=== PATIENT | male | born 1995 | race Caucasian/White ===

== ENCOUNTER 2017-07-24 06:10 | Day surgery (SDC) | payer OTHER ==
--- NOTE | 2017-07-14 10:21 | HP ---
CC: Dr. [facility]; Dr. Saul * PREOPERATIVE HISTORY AND PHYSICAL: DATE OF ADMISSION: The patient is scheduled for same-day surgery admission by Dr. Blank on , 07/24/17 DATE OF PREOPERATIVE HISTORY AND PHYSICAL EXAMINATION: 07/11/17. ATTENDING SURGEON: Dr. George Blank * (dictated by Alexandria Up NP) CHIEF COMPLAINT: Anal fistula. HISTORY OF PRESENT ILLNESS: The patient is a 21-year-old male initially referred to Dr. Blank in January 2017 from [facility] for evaluation of a perianal abscess. It was unclear at that time whether it represented a fistula or draining abscess. He was treated with antibiotics and topical therapy. He had not returned to our office until 05/28/17, complaining of ongoing drainage and external pain. He did not report a lot of pain with bowel movement, but when he was wiping or cleaning the area, it was very tender. He denied any fever or chills. He does not have a history of Crohn's disease or colitis. He was not reporting blood in the stool. He reported adequate sphincter control. Dr. Blank examined him on 05/28/17 and at that time, he had 3 openings on the left buttock about the 8 o'clock position, about 4 cm from the anus. These were pouting granulation and were tender; Dr. Blank at that time was unable to do a proper anoscopic examination. Therefore, Dr. Blank discussed the findings with the patient and his mother, stating that it clearly represents anal fistula disease and was concerned about this being a complex fistula, so an MRI was ordered which confirmed a left perianal fistula, not associated with a complex fistula and no loculated abscess. Dr. Blank has recommended anal exam under anesthesia and possible fistulotomy as a same-day surgery procedure and has described the nature of the surgical procedure, the use of a seton, the relevant risks and benefits, and today I reviewed the expected postoperative care and recovery with the patient and his mother. They have had a chance to ask questions and stated that they understand the information and are satisfied with the answers given to their questions. The patient will sign surgical consent on the day of surgery. PAST MEDICAL HISTORY: Generally healthy. No acute or chronic diseases. PAST SURGICAL HISTORY: Limited to office excision of a benign mass on the right anterior chest in [address] Blank. MEDICATIONS: None currently. ALLERGIES: No known drug allergies. FAMILY HISTORY: No known anesthesia complications, bleeding tendencies, or clotting disorders. SOCIAL HISTORY: He is single; he works in a grocery store. He is a nonsmoker. He denies the use of alcohol or other substances. His mother accompanied him to the visit today. REVIEW OF SYSTEMS: Constitutional: No fevers, chills, excessive fatigue, or weight loss. Endocrine: No diabetes or thyroid disease. Hematologic: No easy bruising or bleeding. Respiratory: No dyspnea on exertion. No chronic cough. Cardiovascular: No anginal chest pain or palpitations. Gastrointestinal : No nausea, vomiting, diarrhea, GI bleeding, or constipation. Genitourinary: No dysuria. Musculoskeletal: No pain. Neurologic: No headache or blurred vision or areas of focal weakness. General: No history of deep vein thrombosis or pulmonary embolism; no previous general anesthesia and has tolerated local anesthesia. No bleeding tendencies and has never received a blood transfusion. PHYSICAL EXAMINATION GENERAL SURVEY: The patient is a 21-year-old male, well developed, well nourished, in no acute distress. VITAL SIGNS: Height 70 inches, weight 141 pounds, body mass index 20. Blood pressure 118/62, pulse 84 and regular, respiratory rate 16, temperature 97.5 tympanic. HEENT: Benign. NECK: Supple. No cervical lymphadenopathy. LUNGS: Breath sounds bilaterally clear and equal. HEART: Regular rate and rhythm. No murmurs or rubs appreciated. BACK: No CVA tenderness. ABDOMEN: Active bowel sounds, soft, nondistended, nontender throughout. No obvious masses, organomegaly, or evidence of ventral hernias. RECTAL: Exam of the open wounds on the left buttock as examined by myself and Dr. Blank today revealed no surrounding erythema. There is pouting granulation and serous drainage. No pus. GENITALIA: Deferred. EXTREMITIES: Warm without edema or skin ulceration. NEUROLOGIC: Alert and oriented x3. Steady gait. SKIN: Warm, dry, intact. IMPRESSION: Anal fistula. PLAN: Same-day surgery admission to Dr. Blank's service on , 07/24/17 , for anal exam under anesthesia, possible fistulotomy. JULIAN UP, [employer]ER [id number]/[facility] #: [id number] NATALIE
[~2017-07-24 06:10] MED LIST: Buffered Lidocaine 0.9% SYRIN* 5 ML/SYR SYRINGE INTRADERM ONE; Dexamethasone IV* 4 MG/ML 1 ML (4 MG) IV SLOW PU ONE; Famotidine IV* 10 MG/ML 2 ML (20 mg) IV ONE
[2017-07-24] MEDS ORDERED: Dexamethasone IV* 4 MG/ML 1 ML (4 MG) ONE (06:32)
[2017-07-24] MEDS ORDERED: Famotidine IV* 10 MG/ML 2 ML (20 mg) ONE (06:32)
[2017-07-24] MEDS ORDERED: ceFOXitin 2 GM IVPREMIX* 2 GM/50 ML BAG ONE (06:33)
[2017-07-24] MEDS ORDERED: Buffered Lidocaine 0.9% SYRIN* 5 ML/SYR SYRINGE ONE (06:33)
[2017-07-24] MEDS ORDERED: Lidocaine 2% JELLY* 6 ML JELLY TOPICAL ONE (07:25)
[2017-07-24] MEDS ORDERED: Bupivacaine 0.25% SDV* 30 ML ONE (07:25)
[2017-07-24] MEDS ORDERED: Ketorolac INJ* 30 MG/ML 1 ML VIAL ONE (07:42)
[2017-07-24] MEDS ORDERED: Chloroprocaine 2%* 20 ML VIAL ONE (07:42)
[2017-07-24] MEDS ORDERED: Propofol* 10 MG/ML 20 ML BTL IV PUSH ONE (07:42)
[2017-07-24] MEDS ORDERED: Ondansetron INJ* 2 MG/ML VIAL ONE (07:42)
[2017-07-24] MEDS ORDERED: Midazolam* 1 MG/ML 5 ML VIAL (5 MG) ONE (07:44)
[2017-07-24] MEDS ORDERED: Lidocaine 1.5% EPI 1:200,000* 30 ML SDV ONE (08:11)
[2017-07-24] MEDS ORDERED: Bupivacaine 0.5% SDV PF* 30 ML VIAL ONE (08:11)
[2017-07-24] MEDS ORDERED: Ondansetron INJ* 2 MG/ML VIAL IV PRN (08:20)
[2017-07-24] MEDS ORDERED: fentaNYL* 50 MCG/ML 2 ML VIAL (100 MCG VIAL) IV PRN (08:20)
[2017-07-24] MEDS ORDERED: DiMENhydriNATE IV* 50 MG/ML VIAL IV PUSH PRN (08:20)
[2017-07-24] MEDS ORDERED: oxyCODONE/Acetamin 5/325 MG* TAB PO PRN (08:20)
[2017-07-24] MEDS ORDERED: oxyCODONE/Acetamin 5/325 MG* TAB ONE (09:47)
[2017-07-24 10:50] VITALS: BP 111/74
--- NOTE | 2017-07-25 01:55 | OP ---
CC: Dr. Kian Saul* DATE OF OPERATION: 07/24/17 - [facility] DATE OF : 89 SURGEON: George Blank MD SPICE BLENDER: None. ANESTHESIOLOGIST: Dr. Christiano San ANESTHESIA: Spinal anesthetic, local infiltration. PRE-OP DIAGNOSIS: Anal fistula. POST-OP DIAGNOSIS: Anal fistula. OPERATIVE PROCEDURE: Anoscopy and anal fistulotomy. DESCRIPTION OF PROCEDURE: The patient was supine on the operating table. After adequate spinal anesthetic, compression stockings, Ricardo Hugger warmer and intravenous antibiotics, he was placed in the prone jackknife position with the buttocks taped apart. The area was prepped with Betadine, draped in a sterile fashion. Anoscopy was carried out. There was some nodularity in the posterior midline. There were 3 exit sites between the 6 and 8 o'clock position. These were all injected with hydrogen peroxide and they all communicate and exit at the same site in the anal canal, which is the area of the nodularity and the posterior midline. Probe was readily passed through the tract and fistulotomy was carried out of all 3 sites. Chronic granulation was ablated with electrocautery. The internal sphincter was left intact and not divided. Local anesthetic was administered and gauze dressing was placed. He tolerated the procedure well and was brought to Recovery in good condition. There were no complications. No drains. No pathologic specimens. Sponge and instrument counts correct. Estimated blood loss was 10 mL. [id number] #: [id number] MTDD
== END 2017-07-24 10:53 | disposition home or self-care (01) ==
LOC: OR 06:10
PROVIDERS: ATTEND Surgery
DX: K60.3 Anal fistula (principal)
CPT/HCPCS: 62323; A9270-GY; J0694; J1100; J1885; J2250; J2400; J2405; J2704